=== PATIENT | female | born 1985 | race Caucasian/White ===

== ENCOUNTER 2021-10-04 22:34 | Emergency (ER) | payer BC ==
[2021-10-04] MEDS ORDERED: Iopamidol 755 MG/ML 150 ML Bottle IV ONE (23:39)
[2021-10-05] MEDS ORDERED: Amoxicillin/Clavulanate K 875-125 MG Tab PO ONE (01:20)
[2021-10-05 01:52] VITALS: BP 144/84; PULSE 76
== END 2021-10-05 01:50 | disposition home or self-care (01) ==
LOC: FB.ED 22:34
DX: K50.00 Crohn's disease of small intestine without complications (principal); E66.9 Obesity, unspecified; Z68.42 Body mass index [BMI] 45.0-49.9, adult; Z72.0 Tobacco use
CPT/HCPCS: 36415; 74177; 80053; 81001; 85025; 99284; A9270; Q9967

== ENCOUNTER 2022-05-07 17:29 | Emergency (ER) | payer BC ==
[2022-05-07] MEDS ORDERED: Sodium Chloride 0.9% 10 ML Syringe FLUSH PRN (17:55)
[2022-05-07] MEDS ORDERED: Morphine 2 MG/ML SYRINGE IVPUSH STA (17:55)
[2022-05-07] MEDS ORDERED: Sodium Chloride 0.9% 1,000 ML IV SCH (18:00)
[2022-05-07] MEDS ORDERED: Iopamidol 755 Mg/ML 100 ML Bottle IV ONE (18:16)
[2022-05-07 18:36] LABS: ESTIMATED GFR 97 mL/min (>60)
[2022-05-07 21:54] VITALS: BP 147/74; PULSE 72
== END 2022-05-07 21:15 | disposition home or self-care (01) ==
LOC: FB.ED 17:29
DX: R10.32 Left lower quadrant pain (principal); R10.31 Right lower quadrant pain
CPT/HCPCS: 36415; 74177; 80053; 81001; 81025; 82150; 83605; 83690; 85025; 87040; 96361; 96374; 99283; 99284-25; J2270; J3490; J7030; Q9967

== ENCOUNTER 2022-05-09 11:49 | Observation (INO) | payer BC ==
[2022-05-09] MEDS ORDERED: RISANKIZUMAB RZAA 150 MG/ML INJECT SCH (12:30)
[2022-05-09 12:53] LABS: ESTIMATED GFR 113 mL/min (>60)
[2022-05-09] MEDS: Enoxaparin 40 MG/0.4 ML Syringe SUBCUT SCH (12:57)
[2022-05-09] MEDS: Pantoprazole 40 MG Tab.CR PO SCH (12:59)
[2022-05-09] MEDS: Piperacillin/Tazobactam 4.5 GM in Sodium Chloride 0.9% 100 ML IV SCH ×2 (13:10→17:57)
[2022-05-09] MEDS ORDERED: Ibuprofen 600 MG Tab PO PRN (15:30)
[2022-05-09] MEDS ORDERED: oxyCODONE 5 MG Tab PO PRN (15:31)
[2022-05-09] MEDS: Sodium Chloride 0.9% 10 ML Syringe FLUSH PRN (19:00)
[2022-05-09] MEDS: Topiramate 50 MG Tab PO SCH (20:29)
[2022-05-09] MEDS: Acetaminophen 500 MG Tab PO PRN (20:34)
[2022-05-10] MEDS: Sodium Chloride 0.9% 10 ML Syringe FLUSH PRN ×3 (00:53→07:32)
[2022-05-10] MEDS: Piperacillin/Tazobactam 4.5 GM in Sodium Chloride 0.9% 100 ML IV SCH ×2 (00:53→06:38)
[2022-05-10] MEDS: Pantoprazole 40 MG Tab.CR PO SCH (06:37)
[2022-05-10 07:04] LABS: ESTIMATED GFR 113 mL/min (>60)
[2022-05-10] MEDS: Enoxaparin 40 MG/0.4 ML Syringe SUBCUT SCH ×2 (11:34→11:48)
[2022-05-10] MEDS: Topiramate 50 MG Tab PO SCH (21:16)
[2022-05-10] MEDS: Acetaminophen 500 MG Tab PO PRN (21:17)
[2022-05-11] MEDS: Pantoprazole 40 MG Tab.CR PO SCH (06:32)
[2022-05-11 06:45] LABS: ESTIMATED GFR 118 mL/min (>60)
[2022-05-11 07:52] VITALS: BP 114/66; PULSE 79
[2022-05-11] MEDS: Sodium Chloride 0.9% 10 ML Syringe FLUSH PRN (09:04)
== END 2022-05-11 11:00 | disposition home or self-care (01) ==
LOC: UNDOADMOB 11:49 → FB.MS 11:49
PROVIDERS: ADMIT Student in an Organized Health Care Education/Training Program; ATTEND Student in an Organized Health Care Education/Training Program
DX: K52.9 Noninfective gastroenteritis and colitis, unspecified (principal); G43.909 Migraine, unspecified, not intractable, without status migrainosus; D72.829 Elevated white blood cell count, unspecified; E66.01 Morbid (severe) obesity due to excess calories; Z79.899 Other long term (current) drug therapy; Z68.41 Body mass index [BMI] 40.0-44.9, adult
CPT/HCPCS: 36415; 80048; 80053; 85025; 96365; 96366; 96372; 99217; 99219; 99225; A9270; G0378; G0379; J1650; J2543; J3490

== ENCOUNTER 2024-07-21 17:23 | Emergency (ER) | payer OTHER, BC ==
[2024-07-21] MEDS: Ketorolac 30 MG/ML SDV IM ONE (18:22)
[2024-07-21 19:21] VITALS: BP 128/78; PULSE 81
== END 2024-07-21 19:10 | disposition home or self-care (01) ==
LOC: FB.ED 17:23
DX: S22.31XA Fracture of one rib, right side, initial encounter for closed fracture (principal); E66.9 Obesity, unspecified; F17.210 Nicotine dependence, cigarettes, uncomplicated; Z90.49 Acquired absence of other specified parts of digestive tract; Z79.899 Other long term (current) drug therapy; Z68.41 Body mass index [BMI] 40.0-44.9, adult; W00.0XXA Fall on same level due to ice and snow, initial encounter
CPT/HCPCS: 71101; 96372; 99283; J1885